=== PATIENT | male | born 1985 | race Caucasian/White ===

== ENCOUNTER 2017-10-10 18:34 | Emergency (ER) | payer OTHER ==
[~2017-10-10] VITALS: Ht 188 cm; Wt 95.3 kg
[2017-10-10] MEDS ORDERED: TRAMADOL 50 MG50 MG PO (19:22)
[2017-10-10 19:52] VITALS: BP 148/66
== END 2017-10-10 19:53 | disposition home or self-care (01) ==
LOC: ER 18:34
DX: S93.401A Sprain of unspecified ligament of right ankle, initial encounter (principal); F17.210 Nicotine dependence, cigarettes, uncomplicated; Z88.5 Allergy status to narcotic agent; X58.XXXA Exposure to other specified factors, initial encounter; Y93.67 Activity, basketball; Y92.89 Other specified places as the place of occurrence of the external cause; Y99.8 Other external cause status